=== PATIENT | male | born 1965 | race Two or more races ===

== ENCOUNTER → 2022-06-14 | Outpatient (CLI) | payer MEDICAID ==
[~2022-06-14] MED LIST: ALB5IS NEB; ALBUAER3 IN; ALBUTEROL SULF 2.5 MG/0.5ML(0.5%) NEB SOLN ONE; FLUT1INH6 IN
== END | disposition home or self-care (01) ==
LOC: RT 12:59
PROVIDERS: ATTEND Internal Medicine Pulmonary Disease
DX: J45.50 Severe persistent asthma, uncomplicated (principal)
CPT/HCPCS: 94060

== ENCOUNTER → 2024-02-07 | Outpatient (CLI) | payer MEDICAID ==
[~2024-02-07] MED LIST changes: -ALBUTEROL SULF 2.5 MG/0.5ML(0.5%) NEB SOLN ONE
== END | disposition home or self-care (01) ==
LOC: RT 10:44
PROVIDERS: ATTEND Internal Medicine Pulmonary Disease
DX: J44.9 Chronic obstructive pulmonary disease, unspecified (principal); R06.00 Dyspnea, unspecified
CPT/HCPCS: 94618